=== PATIENT | female | born 1935 | race Caucasian/White ===

== ENCOUNTER 2019-02-15 07:18 | Day surgery (SDC) | payer MEDICARE, OTHER ==
[~2019-02-15] VITALS: Ht 152.4 cm; Wt 111.0 kg
--- NOTE | 2019-02-15 08:12 | PREAC ---
Date/Time of Note Date/Time of Note DATE: 02/15/19 TIME: 08:04 Anesthesia Eval and Record Evaluation Time Pre-Procedure Interview DATE: 02/15/19 TIME: 08:04 Age 83 Sex female NPO: 8 hrs Preoperative diagnosis anemia Planned procedure EGD, colonoscopy Past Medical History Past Medical History: Includes Cardio: HTN Endo: Diabetes Pulm: COPD Neuro: CVA Psych: Depression, Anxiety Surgery & Anesthesia Issues No known issue Meds Anticoagulation: Yes Beta Steven within 24 hr: Yes Reason Beta Steven not given: Bradycarida, Hypotension Meds reviewed: Yes Allergies Allergies Reviewed: Yes Labs/Studies Labs Reviewed: Reviewed by anesthesiologist test: N/A Pre-procedure Exam Airway: Adequate mouth opening, Adequate thyromental dist Mallampati: Mallampati II Teeth: Normal Lung: Normal Heart: Normal ASA Physical Status ASA physical status: 3 Emergency: None Planned Anesthetic General/MAC: Mask Planned Pain Management Parenteral pain med Pre-operative Attestations Prior to commencing anesthesia and surgery, the patient was re-evaluated, there was verification of: *The patient's identity *The results of appropriate recent lab work and preoperative vital signs *The above evaluation not changing prior to induction *Anesthetic plan, risk benefits, alternative and complications discussed with patient/family; questions answered; patient/family understands, accepts and wishes to proceed. [employer] used DARIO GUTIÉRREZ MD February 15, 2019 08:12
[2019-02-15] MEDS ORDERED: HYDRALAZINE (08:32)
[2019-02-15] MEDS ORDERED: BUMEX (08:32)
[2019-02-15] MEDS ORDERED: SENNA (08:32)
[2019-02-15] MEDS ORDERED: MYLICON (08:32)
[2019-02-15] MEDS ORDERED: CYMBALTA (08:32)
[2019-02-15] MEDS ORDERED: PLAVIX (08:32)
[2019-02-15] MEDS ORDERED: BENAZEPRIL (08:32)
[2019-02-15] MEDS ORDERED: MULTIVITAMIN (08:32)
[2019-02-15] MEDS ORDERED: NEURONTIN (08:32)
[2019-02-15] MEDS ORDERED: LATANOPROST (08:32)
[2019-02-15] MEDS ORDERED: ALPHAGAN (08:32)
[2019-02-15] MEDS ORDERED: COLACE (08:32)
[2019-02-15] MEDS ORDERED: METOPROLOL (08:32)
[2019-02-15] MEDS ORDERED: LANTUS (08:32)
[2019-02-15] MEDS ORDERED: IRON (08:32)
[2019-02-15] MEDS ORDERED: VITAMIN B12 (08:32)
[2019-02-15 08:42] VITALS: Ht 152.4 cm; Wt 111.0 kg
[2019-02-15] MEDS ORDERED: PROPOFOL 40 ML ONE (08:42)
[2019-02-15] MEDS ORDERED: LIDOCAINE 2% (SDV) 5 ML INJ ONE (08:42)
[2019-02-15] MEDS ORDERED: FENTAnyl 50 MCG/ML VIAL ONE (08:43)
[2019-02-15 08:44] VITALS: BP 220/87; PULSE 73; RESP 7
[2019-02-15] MEDS ORDERED: PROPOFOL 20 ML ONE (08:45)
[2019-02-15] MEDS ORDERED: hydrALAzine 20 MG INJ ONE ×2 (08:46→09:48)
--- NOTE | 2019-02-15 09:25 | PAC ---
Date/Time of Note Date/Time of Note DATE: 02/15/19 TIME: 09:24 Post-Anesthesia Notes Post-Anesthesia Note Last documented vital signs Vital Signs Date Temp Pulse Resp B/P (MAP) Pulse Ox O2 O2 Flow FiO2 Time Delivery Rate 02/15/19 97.9 73 7 220/87 93 Room Air 08:44 (131) Activity: WNL Respiratory function: WNL Cardiovascular function: WNL Mental status: Baseline Pain reasonably controlled: Yes Hydration appropriate: Yes Nausea/Vomiting absent: Yes Comments BP: 134/69 HR: 72 RR: 15 T: 98 Sao2: 99% DARIO GUTIÉRREZ MD February 15, 2019 09:25
[2019-02-15] MEDS ORDERED: ONDANSETRON 4 MG INJ IV PRN (09:30)
[2019-02-15] MEDS ORDERED: hydrALAzine 20 MG INJ IV PRN (09:30)
[2019-02-15 09:40] VITALS: BP 221/87; PULSE 66; RESP 20
[2019-02-15 09:45] VITALS: BP 166/71; PULSE 66
[2019-02-15 09:50] VITALS: BP 166/71; RESP 20
[2019-02-15 09:55] VITALS: BP 159/69; PULSE 66; RESP 18
[2019-02-15 10:00] VITALS: BP 147/77; PULSE 64; RESP 19
== END 2019-02-15 11:58 | disposition home or self-care (01) ==
LOC: GIL 07:18
PROVIDERS: ATTEND Internal Medicine Gastroenterology
DX: K64.9 Unspecified hemorrhoids (principal); K63.89 Other specified diseases of intestine; D50.0 Iron deficiency anemia secondary to blood loss (chronic); I10 Essential (primary) hypertension; E11.9 Type 2 diabetes mellitus without complications; Z86.73 Personal history of transient ischemic attack (TIA), and cerebral infarction without residual deficits
CPT/HCPCS: 43239; 45378; 82962; 88305; 88312; J0360; J3010